=== PATIENT | male | born 1960 | race Caucasian/White ===

== ENCOUNTER 2022-12-18 07:43 | Day surgery (SDC) | payer BC ==
[~2022-12-18] VITALS: Ht 172.7 cm; Wt 78.5 kg
[2022-12-18 09:00] VITALS: O2SAT 98
[2022-12-18] MEDS ORDERED: fentaNYL CITRATE/PF 100 MCG/2 ML AMP ONE (09:02)
[2022-12-18] MEDS ORDERED: MIDAZOLAM HCL 5 MG/5 ML VIAL ONE (09:03)
[2022-12-18 13:37] VITALS: BP_SYST 137; PULSE 62; RESP 20
== END 2022-12-18 10:58 | disposition home or self-care (01) ==
LOC: SDS 07:43 → SMU 07:47 → SDS 10:58
PROVIDERS: ATTEND Internal Medicine
DX: Z12.11 Encounter for screening for malignant neoplasm of colon (principal); K64.8 Other hemorrhoids; I10 Essential (primary) hypertension; Z79.82 Long term (current) use of aspirin; Z79.899 Other long term (current) drug therapy
CPT/HCPCS: 45378; 99152; G0378; J2250; J3010